=== PATIENT | male | born 1965 | race Caucasian/White ===

== ENCOUNTER 2022-08-15 10:17 | Emergency (ER) | payer MEDICARE, OTHER ==
[~2022-08-15] VITALS: Ht 160 cm; Wt 86.6 kg
[2022-08-15] MEDS ORDERED: IV NS 0.9% 1,000 ML BAG IV ONE (10:30)
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
[2022-08-15 11:07] LABS: BASOPHILS % (AUTO) 0.5 % (0.0-2.0); EOSINOPHILS % (AUTO) 2.6 % (0.0-6.0); HEMATOCRIT 31 % (39-51); LYMPHOCYTES % (AUTO) 16.6 % (20.0-44.0); MEAN CORPUSCULAR HGB CONC 33 g/dl (31.0-36.0); MEAN CORPUSCULAR VOLUME 94 fL (80-96); MONOCYTES # (AUTO) 0.7 K/uL (0.1-1.30); MONOCYTES % (AUTO) 12.3 % (2.0-12.0); NEUTROPHILS # (AUTO) 3.9 K/uL (1.8-8.9); PLATELET COUNT (AUTO) 226 K/uL (150-450); RED BLOOD CELL COUNT(AUTO) 3.29 MIL/uL (4.5-6.0); WHITE BLOOD COUNT (AUTO) 5.8 K/uL (4.3-11.0)
[2022-08-15 11:22] LABS: CALCIUM, SERUM 8.9 mg/dL (8.5-10.1); CARBON DIOXIDE 24 mmol/L (21-32); CHLORIDE 105 mmol/L (98-107); CREATININE 1.3 mg/dL (0.6-1.3); GLUCOSE 83 mg/dL (74-106); POTASSIUM 4.7 mmol/L (3.5-5.1); SODIUM SERUM 134 mmol/L (136-145); UREA NITROGEN, BLOOD 20 mg/dL (7-18)
[2022-08-15 11:28] LABS: ALANINE AMINOTRANSFERASE 20 U/L (12-78); ALBUMIN 3.5 g/dL (3.4-5.0); ALKALINE PHOSPHATASE 107 U/L (46-116); ASPARTATE AMINOTRANSFERASE 12 U/L (15-37); BILIRUBIN,DIRECT 0.1 mg/dL (0.0-0.2); BILIRUBIN,TOTAL 0.2 mg/dL (0.2-1.0); TOTAL PROTEIN, SERUM 6.8 g/dL (6.4-8.2)
--- NOTE | 2022-08-15 14:12 | NUR ---
[facility] CALLED FOR TRANSPORT ETA 45 MINS.
[2022-08-15 15:10] VITALS: BP 134/77
--- NOTE | 2022-08-15 15:25 | NUR ---
patient picked up by private ambulance in no distress going to [facility].
== END 2022-08-15 15:24 ==
LOC: ER 10:19
DX: R55 Syncope and collapse (principal); E86.0 Dehydration; I10 Essential (primary) hypertension; E78.5 Hyperlipidemia, unspecified; G89.29 Other chronic pain; F20.9 Schizophrenia, unspecified; F32.A Depression, unspecified
CPT/HCPCS: 99285; 96360; 71045; 93005; 85025; 80048; 80076; 36415; 84484; J7030

== ENCOUNTER 2023-09-22 07:43 | Inpatient (IN) | payer MEDICARE, OTHER ==
[~2023-09-22] VITALS: Ht 170.2 cm; Wt 73.9 kg
[2023-09-22 08:59] LABS: APPEARANCE,URINE CLEAR (CLEAR); BILIRUBIN,URINE NEGATIVE (NEGATIVE); BLOOD, URINE TRACE-INTA Ery/uL (NEGATIVE); COLOR,URINE YELLOW (YELLOW); KETONES,URINE 3+ mg/dL (NEGATIVE); LEUKOCYTE ESTERASE ,URINE NEGATIVE (NEGATIVE); NITRITE, URINE NEGATIVE (NEGATIVE); PH,URINE 5.5 (5.0-8.0); PROTEIN,URINE TRACE mg/dl (NEGATIVE); UGLUCOSE NEGATIVE (NEGATIVE); UROBILINOGEN,URINE 0.2 EU/dL (0.2)
[2023-09-22 09:13] LABS: ADD URINE CULTURE NO; BACTERIA,URINE Rare /HPF (None Seen); RBC,URINE 0-2 /HPF (0-2); SQUAMOUS EPITHELIAL CELL,UR Few /HPF (None Seen); WBC,URINE 0-3 /HPF (0-3)
[2023-09-22 09:14] LABS: HYALINE CASTS, URINE Rare /LPF (None Seen)
[2023-09-22 09:15] LABS: AMPHETAMINE, URINE NEGATIVE (NEGATIVE); BARBITURATE, URINE NEGATIVE (NEGATIVE); CANNABINOID, URINE NEGATIVE (NEGATIVE); COCCAINE, URINE NEGATIVE (NEGATIVE); OPIATE, URINE NEGATIVE (NEGATIVE); PHENCYCLIDINE SCREEN,URINE NEGATIVE (NEGATIVE)
[2023-09-22 10:17] LABS: BENZODIAZEPINE, URINE POSITIVE (NEGATIVE)
[2023-09-22 11:09] LABS: CALCIUM, SERUM 9.6 mg/dL (8.5-10.1); CARBON DIOXIDE 19 mmol/L (21-32); CHLORIDE 89 mmol/L (98-107); CREATININE 0.8 mg/dL (0.6-1.3); GLUCOSE 65 mg/dL (74-106); POTASSIUM 4.4 mmol/L (3.5-5.1); SODIUM SERUM 124 mmol/L (136-145); UREA NITROGEN, BLOOD 12 mg/dL (7-18)
[2023-09-22 11:17] LABS: ALANINE AMINOTRANSFERASE 30 U/L (12-78); ALBUMIN 4.4 g/dL (3.4-5.0); ALKALINE PHOSPHATASE 99 U/L (46-116); ASPARTATE AMINOTRANSFERASE 35 U/L (15-37); BASOPHILS % (AUTO) 0.1 % (0.0-2.0); BILIRUBIN,DIRECT 0.1 mg/dL (0.0-0.2); BILIRUBIN,TOTAL 0.4 mg/dL (0.2-1.0); HEMATOCRIT 38 % (39-51); HEMOGLOBIN 12.2 g/dL (13.5-17.5); LYMPHOCYTES # (AUTO) 0.4 K/uL (0.8-4.8); LYMPHOCYTES % (AUTO) 5.9 % (20.0-44.0); MEAN CORPUSCULAR HEMOGLOBIN 31 PG (26.0-33.0); MEAN CORPUSCULAR HGB CONC 33 g/dl (31.0-36.0); MEAN CORPUSCULAR VOLUME 96 fL (80-96); MONOCYTES # (AUTO) 0.7 K/uL (0.1-1.30); MONOCYTES % (AUTO) 8.7 % (2.0-12.0); NEUTROPHILS # (AUTO) 6.4 K/uL (1.8-8.9); NEUTROPHILS % (AUTO) 85.3 % (43.0-81.0); PLATELET COUNT (AUTO) 250 K/uL (150-450); TOTAL PROTEIN, SERUM 7.8 g/dL (6.4-8.2); WHITE BLOOD COUNT (AUTO) 7.5 K/uL (4.3-11.0)
[2023-09-22 11:21] LABS: SALICYLATE 1.7 mg/dL (2.8-20.0)
[2023-09-22 11:22] LABS: ACETAMINOPHEN < 10 ug/ml (10-30); ALCOHOL, BLOOD < 3 mg/dL (0-10)
[2023-09-22] MEDS ORDERED: TDAP [DIPH/PERTUSSIS/TET] 0.5 ML VIAL IM ONE ×2 (12:30→13:00)
[2023-09-22] MEDS ORDERED: IV NS 0.9% 1,000 ML BAG IV ONE (12:30)
[2023-09-22 16:00] VITALS: BP 140/88; TEMP 98.4; O2SAT 98
[2023-09-22] MEDS ORDERED: ACETAMINOPHEN 325 MG TABLET PO PRN (17:30)
[2023-09-22] MEDS ORDERED: Z GUARD REMEDY 4 OZ OINT TP PRN (17:30)
[2023-09-22] MEDS ORDERED: ONDANSETRON HCL/PF 4 MG/2 ML VIAL IVP PRN (17:30)
[2023-09-22] MEDS ORDERED: IV NS 0.9% 100 ML IV ONE (17:30)
[2023-09-22] MEDS ORDERED: MAG HYDROX/AL HYDROX/SIMETH 30 ML UDC PO PRN (17:30)
[2023-09-22 18:40] LABS: THYROID STIMULATING HORMONE 1.091 uIU/mL (0.358-3.74)
[2023-09-22 20:00] VITALS: BP 148/90; TEMP 99.7; O2SAT 98
[2023-09-22 20:56] VITALS: BP 148/90; TEMP 99.7; O2SAT 98
[2023-09-22] MEDS ORDERED: ENOXAPARIN SODIUM 40 MG/0.4 ML DISP.SYRIN SQ SCH (21:00)
[2023-09-22 23:35] VITALS: BP 174/98; TEMP 98.1; O2SAT 98
[2023-09-23] VITALS: BP 174/98; TEMP 98.1; O2SAT 98
[2023-09-23] MEDS ORDERED: CLONIDINE HCL 0.1 MG TABLET PO PRN (00:30)
[2023-09-23] MEDS: LORAZEPAM INJ 2 MG/ML VIAL IV PRN ×2 (03:42→16:02)
[2023-09-23] MEDS ORDERED: PANTOPRAZOLE 40 MG TABLET.DR PO SCH (07:30)
[2023-09-23 08:00] VITALS: BP 156/87; TEMP 98.8; O2SAT 94
[2023-09-23] MEDS ORDERED: ARIP5TAB10 PO ×2 (08:40→12:14)
[2023-09-23] MEDS ORDERED: METO25TA3 PO ×2 (08:40→12:14)
[2023-09-23] MEDS ORDERED: SODI1TAB66 PO ×2 (08:40→12:14)
[2023-09-23] MEDS ORDERED: OXCA300T15 PO ×2 (08:40→12:14)
[2023-09-23] MEDS ORDERED: LISI10TA29 PO ×2 (08:40→12:14)
[2023-09-23] MEDS ORDERED: TAMS-12 PO ×2 (08:40→12:14)
[2023-09-23] MEDS ORDERED: AMLO-213 PO ×2 (08:40→12:14)
[2023-09-23] MEDS ORDERED: LAMO100T17 PO ×2 (08:40→12:14)
[2023-09-23] MEDS ORDERED: PRIM50TA27 PO ×2 (08:40→12:14)
[2023-09-23] MEDS ORDERED: ATOR10TA PO ×2 (08:40→12:14)
[2023-09-23] MEDS ORDERED: MULT-24 PO (08:40)
[2023-09-23] MEDS ORDERED: ESCI10TA PO (08:40)
[2023-09-23] MEDS ORDERED: SERT50TA PO ×2 (08:40→12:14)
[2023-09-23] MEDS ORDERED: QUET300T2 PO ×2 (08:40→12:14)
[2023-09-23 09:35] LABS: HEMATOCRIT 35 % (39-51); HEMOGLOBIN 11.7 g/dL (13.5-17.5); LYMPHOCYTES # (AUTO) 0.4 K/uL (0.8-4.8); LYMPHOCYTES % (AUTO) 6.3 % (20.0-44.0); MEAN CORPUSCULAR HEMOGLOBIN 31 PG (26.0-33.0); MEAN CORPUSCULAR HGB CONC 33 g/dl (31.0-36.0); MEAN CORPUSCULAR VOLUME 92 fL (80-96); MONOCYTES # (AUTO) 0.5 K/uL (0.1-1.30); NEUTROPHILS # (AUTO) 5.8 K/uL (1.8-8.9); NEUTROPHILS % (AUTO) 85.7 % (43.0-81.0); PLATELET COUNT (AUTO) 281 K/uL (150-450); RED BLOOD CELL COUNT(AUTO) 3.82 MIL/uL (4.5-6.0); RED CELL DISTRIBUTION WIDTH 13.8 % (11.5-15.0); WHITE BLOOD COUNT (AUTO) 6.7 K/uL (4.3-11.0)
[2023-09-23 09:53] LABS: CALCIUM, SERUM 8.7 mg/dL (8.5-10.1); MAGNESIUM 2.4 mg/dL (1.8-2.4); PHOSPHORUS 3.4 mg/dL (2.5-4.9); POTASSIUM 3.7 mmol/L (3.5-5.1)
[2023-09-23] MEDS: SODIUM CHLORIDE 1000 MG TABLET PO SCH ×2 (10:23→17:32)
[2023-09-23 12:00] VITALS: BP 141/96; TEMP 100.6; O2SAT 96
[2023-09-23 13:26] LABS: LYMPHOCYTES % (MANUAL) 6 % (16-48); MONOCYTES % (MANUAL) 9 % (0-11.0); NEUTROPHILS % (MANUAL) 85 (42-76); PLATELET ESTIMATE ADEQUATE
[2023-09-23 16:00] VITALS: BP 115/94; TEMP 98.1; O2SAT 97
[2023-09-23] MEDS ORDERED: QUETIAPINE FUMARATE 100 MG TABLET PO SCH (17:00)
[2023-09-23] MEDS ORDERED: OXCARBAZEPINE 150 MG TABLET PO SCH (17:00)
[2023-09-23] MEDS ORDERED: TAMSULOSIN 0.4 MG CAP.SR.24H PO SCH (22:00)
[2023-09-23] MEDS ORDERED: PRIMIDONE 50 MG TABLET PO SCH (22:00)
[2023-09-23] MEDS ORDERED: ARIPIPRAZOLE 5 MG TABLET PO SCH (22:00)
[2023-09-24] MEDS ORDERED: SERTRALINE HCL 50 MG TABLET PO SCH (09:00)
[2023-09-24] MEDS ORDERED: METOPROLOL SUCCINATE 25 MG TAB.SR.24H PO SCH (09:00)
[2023-09-24] MEDS ORDERED: LISINOPRIL (10MG) 10 MG TABLET PO SCH (09:00)
[2023-09-24] MEDS ORDERED: ATORVASTATIN 10 MG TABLET PO SCH (09:00)
[2023-09-24] MEDS ORDERED: MULTIVITAMINS,THERAGRAN 1 UDTAB TABLET PO SCH (09:00)
[2023-09-24] MEDS ORDERED: AMLODIPINE BESYLATE 10 MG TABLET PO SCH (09:00)
[2023-09-24] MEDS ORDERED: LamoTRIgine 100 MG TABLET PO SCH (09:00)
== END 2023-09-23 20:20 | DRG 640 ==
LOC: ER 07:48 → TELE 15:56
PROVIDERS: ADMIT Nurse Practitioner Acute Care; ATTEND Nurse Practitioner Acute Care
DX: E87.1 Hypo-osmolality and hyponatremia (principal); G93.41 Metabolic encephalopathy; Z59.00 Homelessness unspecified; G40.909 Epilepsy, unspecified, not intractable, without status epilepticus; I10 Essential (primary) hypertension; E78.5 Hyperlipidemia, unspecified; F20.9 Schizophrenia, unspecified; G89.29 Other chronic pain; M19.90 Unspecified osteoarthritis, unspecified site; F17.200 Nicotine dependence, unspecified, uncomplicated; D64.9 Anemia, unspecified; E16.2 Hypoglycemia, unspecified; E87.20 Acidosis, unspecified; E87.8 Other disorders of electrolyte and fluid balance, not elsewhere classified; Z79.899 Other long term (current) drug therapy
CPT/HCPCS: 36415; 70450-TC; 71045-TC; 72125-TC; 73564-TC; 80048-TC; 80061-TC; 80076-TC; 81001; 83735-TC; 83935-TC; 84100-TC; 84300-TC; 84443-TC; 84484-TC; 85025-TC; 90715; 97110-TC; 97116-TC; 97530-TC; A4223; G0378; G0480; J1650; J2060; J7030

== ENCOUNTER 2023-09-23 20:46 | Inpatient (IN) | payer MEDICARE, OTHER ==
[~2023-09-23] VITALS: Ht 170.2 cm; Wt 73.9 kg
[2023-09-23 20:40] VITALS: BP 136/90; TEMP 98.2; O2SAT 100
[~2023-09-23 20:46] MED LIST: AMLO-213 PO; ARIP5TAB10 PO; ATOR10TA PO; ESCI10TA PO; LAMO100T17 PO; LISI10TA29 PO; METO25TA3 PO; MULT-24 PO; OXCA300T15 PO; PRIM50TA27 PO; QUET300T2 PO; SERT50TA PO; SODI1TAB66 PO; TAMS-12 PO
[2023-09-23] MEDS ORDERED: MAGNESIUM HYDROXIDE 30 ML UDC PO PRN (21:00)
[2023-09-23] MEDS ORDERED: MAG HYDROX/AL HYDROX/SIMETH 30 ML UDC PO PRN (21:00)
[2023-09-23] MEDS ORDERED: BLOOD SUGAR DIAGNOSTIC 1 EACH STRIP IN ONE (21:00)
[2023-09-23] MEDS ORDERED: LORAZEPAM 0.5 MG TABLET PO PRN (21:00)
[2023-09-24 08:00] VITALS: BP 160/89; TEMP 98.6; O2SAT 100
[2023-09-24] MEDS: LISINOPRIL (10MG) 10 MG TABLET PO SCH (08:28)
[2023-09-24] MEDS: SODIUM CHLORIDE 1000 MG TABLET PO SCH ×2 (08:29→16:13)
[2023-09-24] MEDS: METOPROLOL SUCCINATE 25 MG TAB.SR.24H PO SCH (08:29)
[2023-09-24] MEDS: AMLODIPINE BESYLATE 10 MG TABLET PO SCH (08:29)
[2023-09-24] MEDS: LamoTRIgine 100 MG TABLET PO SCH (09:26)
[2023-09-24] MEDS: risperiDONE 1 MG TABLET PO SCH ×2 (12:51→16:13)
[2023-09-24 15:33] LABS: CREATININE 1.1 mg/dL (0.6-1.3)
[2023-09-24 15:35] LABS: CALCIUM, SERUM 9.4 mg/dL (8.5-10.1); CREATININE 1.1 mg/dL (0.6-1.3); MAGNESIUM 2.5 mg/dL (1.8-2.4); PHOSPHORUS 2.7 mg/dL (2.5-4.9); POTASSIUM 3.5 mmol/L (3.5-5.1)
[2023-09-24 15:38] LABS: CHOLESTEROL 163 mg/dL (<200); HDL CHOLESTEROL 77 mg/dL (40-60); LDL 65 mg/dL (0-99); TRIGLYCERIDES 80 mg/dL (30-150)
[2023-09-24 15:47] LABS: THYROID STIMULATING HORMONE 1.34 uIU/mL (0.358-3.74); URIC ACID 8.2 mg/dL (2.6-7.2)
[2023-09-24 16:00] VITALS: BP 104/79; TEMP 98.1; O2SAT 98
[2023-09-24] MEDS: LORAZEPAM 0.5 MG TABLET PO PRN (16:13)
[2023-09-24 20:24] VITALS: BP 139/79; TEMP 97.9; O2SAT 100
[2023-09-24] MEDS: ATORVASTATIN 10 MG TABLET PO SCH (21:24)
[2023-09-24] MEDS: TRAZODONE 50 MG TABLET PO SCH (21:26)
[2023-09-24] MEDS: TAMSULOSIN 0.4 MG CAP.SR.24H PO SCH (21:27)
[2023-09-25] MEDS: ZOLPIDEM TARTRATE 5 MG TABLET PO PRN ×2 (00:42→22:11)
[2023-09-25 08:00] VITALS: BP 144/99; TEMP 97.7; O2SAT 99
[2023-09-25] MEDS: LORAZEPAM 0.5 MG TABLET PO PRN ×2 (08:55→20:05)
[2023-09-25] MEDS: SODIUM CHLORIDE 1000 MG TABLET PO SCH ×2 (08:56→16:04)
[2023-09-25] MEDS: ESCITALOPRAM OXALATE (10 MG) 10 MG TABLET PO SCH (08:56)
[2023-09-25] MEDS: LISINOPRIL (10MG) 10 MG TABLET PO SCH (08:56)
[2023-09-25] MEDS: METOPROLOL SUCCINATE 25 MG TAB.SR.24H PO SCH (09:07)
[2023-09-25] MEDS: AMLODIPINE BESYLATE 10 MG TABLET PO SCH (09:08)
[2023-09-25] MEDS: LamoTRIgine 100 MG TABLET PO SCH (09:12)
[2023-09-25] MEDS: risperiDONE 1 MG TABLET PO SCH ×2 (09:22→16:04)
[2023-09-25] MEDS ORDERED: diphenhydrAMINE HCL 25 MG CAPSULE PO ONE (09:30)
[2023-09-25 16:00] VITALS: BP 136/95; TEMP 98.1; O2SAT 98
[2023-09-25 20:37] VITALS: BP 153/89; TEMP 97.9; O2SAT 99
[2023-09-25] MEDS: MUPIROCIN OINT 2% 22 GM TUBE NS SCH (21:00)
[2023-09-25] MEDS: ATORVASTATIN 10 MG TABLET PO SCH (21:00)
[2023-09-25] MEDS: TRAZODONE 50 MG TABLET PO SCH (21:03)
[2023-09-25] MEDS: TAMSULOSIN 0.4 MG CAP.SR.24H PO SCH (21:03)
[2023-09-25] MEDS: ACETAMINOPHEN 325 MG TABLET PO PRN (22:28)
[2023-09-26] MEDS: LORAZEPAM 0.5 MG TABLET PO PRN (06:46)
[2023-09-26 08:00] VITALS: BP 123/75; TEMP 99; O2SAT 98
[2023-09-26] MEDS: risperiDONE 1 MG TABLET PO SCH ×2 (08:47→16:09)
[2023-09-26] MEDS: ESCITALOPRAM OXALATE (10 MG) 10 MG TABLET PO SCH (08:47)
[2023-09-26] MEDS: METOPROLOL SUCCINATE 25 MG TAB.SR.24H PO SCH (08:47)
[2023-09-26] MEDS: LISINOPRIL (10MG) 10 MG TABLET PO SCH (08:47)
[2023-09-26] MEDS: LamoTRIgine 100 MG TABLET PO SCH (08:47)
[2023-09-26] MEDS: SODIUM CHLORIDE 1000 MG TABLET PO SCH ×2 (08:47→16:09)
[2023-09-26] MEDS: AMLODIPINE BESYLATE 10 MG TABLET PO SCH (08:49)
[2023-09-26] MEDS: MUPIROCIN OINT 2% 22 GM TUBE NS SCH ×2 (08:50→21:00)
[2023-09-26] MEDS ORDERED: LORAZEPAM 1 MG TABLET PO ONE (12:30)
[2023-09-26 16:00] VITALS: BP 132/84; TEMP 98.2; O2SAT 100
[2023-09-26 20:01] VITALS: BP 111/72; TEMP 98.2; O2SAT 100
[2023-09-26] MEDS: TRAZODONE 50 MG TABLET PO SCH (21:41)
[2023-09-26] MEDS: ATORVASTATIN 10 MG TABLET PO SCH (21:41)
[2023-09-26] MEDS: TAMSULOSIN 0.4 MG CAP.SR.24H PO SCH (21:41)
[2023-09-27] MEDS: LORAZEPAM 0.5 MG TABLET PO PRN (04:46)
[2023-09-27 08:00] VITALS: BP 144/79; TEMP 98.8; O2SAT 99
[2023-09-27] MEDS: ESCITALOPRAM OXALATE (10 MG) 10 MG TABLET PO SCH (08:12)
[2023-09-27] MEDS: LISINOPRIL (10MG) 10 MG TABLET PO SCH (08:12)
[2023-09-27] MEDS: LamoTRIgine 100 MG TABLET PO SCH (08:12)
[2023-09-27] MEDS: AMLODIPINE BESYLATE 10 MG TABLET PO SCH (08:13)
[2023-09-27] MEDS: risperiDONE 1 MG TABLET PO SCH ×2 (08:13→16:11)
[2023-09-27] MEDS: METOPROLOL SUCCINATE 25 MG TAB.SR.24H PO SCH (08:13)
[2023-09-27] MEDS: SODIUM CHLORIDE 1000 MG TABLET PO SCH ×2 (08:13→16:11)
[2023-09-27] MEDS: MUPIROCIN OINT 2% 22 GM TUBE NS SCH ×2 (10:20→21:39)
[2023-09-27] MEDS: clonazePAM 0.5 MG TABLET PO SCH ×3 (12:12→21:40)
[2023-09-27 16:00] VITALS: BP 114/78; TEMP 98.8; O2SAT 98
[2023-09-27 20:00] VITALS: BP 146/81; TEMP 98.1; O2SAT 99
[2023-09-27] MEDS: TRAZODONE 50 MG TABLET PO SCH (21:40)
[2023-09-27] MEDS: ATORVASTATIN 10 MG TABLET PO SCH (21:40)
[2023-09-27] MEDS: TAMSULOSIN 0.4 MG CAP.SR.24H PO SCH (21:40)
[2023-09-28] MEDS: hydrOXYzine PAMOATE 25 MG CAPSULE PO PRN ×2 (04:20→14:39)
[2023-09-28 08:00] VITALS: BP 136/86; TEMP 98; O2SAT 100
[2023-09-28] MEDS: LISINOPRIL (10MG) 10 MG TABLET PO SCH (08:25)
[2023-09-28] MEDS: clonazePAM 0.5 MG TABLET PO SCH ×4 (08:25→21:17)
[2023-09-28] MEDS: MUPIROCIN OINT 2% 22 GM TUBE NS SCH ×2 (08:25→21:20)
[2023-09-28] MEDS: SODIUM CHLORIDE 1000 MG TABLET PO SCH ×2 (08:26→16:17)
[2023-09-28] MEDS: METOPROLOL SUCCINATE 25 MG TAB.SR.24H PO SCH (08:26)
[2023-09-28] MEDS: risperiDONE 1 MG TABLET PO SCH ×2 (08:26→16:17)
[2023-09-28] MEDS: LamoTRIgine 100 MG TABLET PO SCH (08:26)
[2023-09-28] MEDS: AMLODIPINE BESYLATE 10 MG TABLET PO SCH (08:26)
[2023-09-28] MEDS: ESCITALOPRAM OXALATE (10 MG) 10 MG TABLET PO SCH (08:26)
[2023-09-28 16:00] VITALS: BP 106/74; TEMP 98; O2SAT 99
[2023-09-28 20:00] VITALS: BP 116/77; TEMP 98.1; O2SAT 100
[2023-09-28] MEDS: ATORVASTATIN 10 MG TABLET PO SCH (21:17)
[2023-09-28] MEDS: TAMSULOSIN 0.4 MG CAP.SR.24H PO SCH (21:18)
[2023-09-28] MEDS: TRAZODONE 50 MG TABLET PO SCH (21:18)
[2023-09-29 08:00] VITALS: BP 149/79; TEMP 97.6; O2SAT 98
[2023-09-29] MEDS: LamoTRIgine 100 MG TABLET PO SCH (08:01)
[2023-09-29] MEDS: clonazePAM 0.5 MG TABLET PO SCH ×4 (08:01→20:25)
[2023-09-29] MEDS: ESCITALOPRAM OXALATE (10 MG) 10 MG TABLET PO SCH (08:01)
[2023-09-29] MEDS: LISINOPRIL (10MG) 10 MG TABLET PO SCH (08:01)
[2023-09-29] MEDS: AMLODIPINE BESYLATE 10 MG TABLET PO SCH (08:01)
[2023-09-29] MEDS: METOPROLOL SUCCINATE 25 MG TAB.SR.24H PO SCH (08:02)
[2023-09-29] MEDS: risperiDONE 1 MG TABLET PO SCH ×2 (08:02→16:06)
[2023-09-29] MEDS: SODIUM CHLORIDE 1000 MG TABLET PO SCH ×2 (08:02→16:05)
[2023-09-29] MEDS: MUPIROCIN OINT 2% 22 GM TUBE NS SCH ×2 (08:03→20:25)
[2023-09-29] MEDS: hydrOXYzine PAMOATE 25 MG CAPSULE PO PRN (11:10)
[2023-09-29] MEDS: ACETAMINOPHEN 325 MG TABLET PO PRN (14:31)
[2023-09-29 16:00] VITALS: BP 124/87; TEMP 98.6; O2SAT 99
[2023-09-29 20:35] VITALS: BP 125/73; TEMP 98; O2SAT 98
[2023-09-29] MEDS: TRAZODONE 50 MG TABLET PO SCH (21:01)
[2023-09-29] MEDS: ATORVASTATIN 10 MG TABLET PO SCH (21:01)
[2023-09-29] MEDS: TAMSULOSIN 0.4 MG CAP.SR.24H PO SCH (21:02)
[2023-09-30] MEDS: ACETAMINOPHEN 325 MG TABLET PO PRN ×2 (05:48→13:56)
[2023-09-30] MEDS: hydrOXYzine PAMOATE 25 MG CAPSULE PO PRN (05:48)
[2023-09-30 08:00] VITALS: BP 150/93; TEMP 97.9; O2SAT 100
[2023-09-30] MEDS: METOPROLOL SUCCINATE 25 MG TAB.SR.24H PO SCH (08:03)
[2023-09-30] MEDS: LISINOPRIL (10MG) 10 MG TABLET PO SCH (08:03)
[2023-09-30] MEDS: SODIUM CHLORIDE 1000 MG TABLET PO SCH ×2 (08:03→16:27)
[2023-09-30] MEDS: AMLODIPINE BESYLATE 10 MG TABLET PO SCH (08:04)
[2023-09-30] MEDS: ESCITALOPRAM OXALATE (10 MG) 10 MG TABLET PO SCH (08:04)
[2023-09-30] MEDS: LamoTRIgine 100 MG TABLET PO SCH (08:04)
[2023-09-30] MEDS: risperiDONE 1 MG TABLET PO SCH ×2 (08:04→16:27)
[2023-09-30] MEDS: clonazePAM 0.5 MG TABLET PO SCH ×4 (08:04→20:37)
[2023-09-30] MEDS: MUPIROCIN OINT 2% 22 GM TUBE NS SCH ×2 (09:00→20:39)
[2023-09-30 16:00] VITALS: BP 122/72; TEMP 98.1; O2SAT 100
[2023-09-30 20:02] VITALS: BP 106/60; TEMP 98.4; O2SAT 98
[2023-09-30] MEDS: ATORVASTATIN 10 MG TABLET PO SCH (21:02)
[2023-09-30] MEDS: TRAZODONE 50 MG TABLET PO SCH (21:02)
[2023-09-30] MEDS: TAMSULOSIN 0.4 MG CAP.SR.24H PO SCH (21:02)
[2023-10-01 08:00] VITALS: BP 133/71; TEMP 97.8; O2SAT 100
[2023-10-01] MEDS: risperiDONE 1 MG TABLET PO SCH ×3 (08:36→17:03)
[2023-10-01] MEDS: clonazePAM 0.5 MG TABLET PO SCH ×4 (08:36→21:07)
[2023-10-01] MEDS: METOPROLOL SUCCINATE 25 MG TAB.SR.24H PO SCH (08:36)
[2023-10-01] MEDS: LamoTRIgine 100 MG TABLET PO SCH (08:36)
[2023-10-01] MEDS: ESCITALOPRAM OXALATE (10 MG) 10 MG TABLET PO SCH (08:37)
[2023-10-01] MEDS: AMLODIPINE BESYLATE 10 MG TABLET PO SCH (08:37)
[2023-10-01] MEDS: LISINOPRIL (10MG) 10 MG TABLET PO SCH (08:37)
[2023-10-01] MEDS: SODIUM CHLORIDE 1000 MG TABLET PO SCH ×2 (08:38→17:03)
[2023-10-01 16:00] VITALS: BP 143/72; TEMP 98; O2SAT 95
[2023-10-01 20:16] VITALS: BP 112/66; TEMP 97.9; O2SAT 97
[2023-10-01] MEDS: ATORVASTATIN 10 MG TABLET PO SCH (21:07)
[2023-10-01] MEDS: TAMSULOSIN 0.4 MG CAP.SR.24H PO SCH (21:08)
[2023-10-01] MEDS: TRAZODONE 50 MG TABLET PO SCH (21:08)
[2023-10-02 08:00] VITALS: BP 122/89; TEMP 97.9; O2SAT 98
[2023-10-02] MEDS: METOPROLOL SUCCINATE 25 MG TAB.SR.24H PO SCH (10:57)
[2023-10-02] MEDS: SODIUM CHLORIDE 1000 MG TABLET PO SCH ×2 (10:57→18:05)
[2023-10-02] MEDS: clonazePAM 0.5 MG TABLET PO SCH ×4 (10:57→21:45)
[2023-10-02] MEDS: risperiDONE 1 MG TABLET PO SCH ×3 (10:57→18:05)
[2023-10-02] MEDS: AMLODIPINE BESYLATE 10 MG TABLET PO SCH (10:58)
[2023-10-02] MEDS: LISINOPRIL (10MG) 10 MG TABLET PO SCH (10:58)
[2023-10-02] MEDS: ESCITALOPRAM OXALATE (10 MG) 10 MG TABLET PO SCH (10:59)
[2023-10-02] MEDS: LamoTRIgine 100 MG TABLET PO SCH (11:00)
[2023-10-02 16:00] VITALS: BP 105/79; TEMP 98.7; O2SAT 96
[2023-10-02 20:54] VITALS: BP 124/74; TEMP 97.9; O2SAT 99
[2023-10-02] MEDS: TRAZODONE 50 MG TABLET PO SCH (21:46)
[2023-10-02] MEDS: TAMSULOSIN 0.4 MG CAP.SR.24H PO SCH (21:47)
[2023-10-02] MEDS ORDERED: ATORVASTATIN 10 MG TABLET ONE (22:25)
[2023-10-02] MEDS: ATORVASTATIN 10 MG TABLET PO SCH (22:45)
[2023-10-03 08:00] VITALS: BP 125/77; TEMP 98.2; O2SAT 100
[2023-10-03] MEDS: LamoTRIgine 100 MG TABLET PO SCH (08:21)
[2023-10-03] MEDS: SODIUM CHLORIDE 1000 MG TABLET PO SCH ×2 (08:21→16:06)
[2023-10-03] MEDS: clonazePAM 0.5 MG TABLET PO SCH ×4 (08:21→20:14)
[2023-10-03] MEDS: ESCITALOPRAM OXALATE (10 MG) 10 MG TABLET PO SCH (08:21)
[2023-10-03] MEDS: risperiDONE 1 MG TABLET PO SCH ×3 (08:21→16:06)
[2023-10-03] MEDS: METOPROLOL SUCCINATE 25 MG TAB.SR.24H PO SCH (08:22)
[2023-10-03] MEDS: AMLODIPINE BESYLATE 10 MG TABLET PO SCH (08:22)
[2023-10-03] MEDS: LISINOPRIL (10MG) 10 MG TABLET PO SCH (08:22)
[2023-10-03 16:00] VITALS: BP_SYST 110; BP_SYST 125; BP_DIAS 69; BP_DIAS 77; TEMP 98.1; TEMP 98.2; O2SAT 100; O2SAT 96
[2023-10-03] MEDS: ACETAMINOPHEN 325 MG TABLET PO PRN (16:59)
[2023-10-03 19:24] VITALS: BP 106/65; TEMP 97.7; O2SAT 99
[2023-10-03] MEDS: ATORVASTATIN 10 MG TABLET PO SCH (21:20)
[2023-10-03] MEDS: TRAZODONE 50 MG TABLET PO SCH (21:20)
[2023-10-03] MEDS: TAMSULOSIN 0.4 MG CAP.SR.24H PO SCH (21:20)
[2023-10-04] MEDS: hydrOXYzine PAMOATE 25 MG CAPSULE PO PRN (00:27)
[2023-10-04 05:30] VITALS: BP 122/72; TEMP 98.1; O2SAT 99
[2023-10-04 08:00] VITALS: BP 121/77; TEMP 97.8; O2SAT 99
[2023-10-04] MEDS: AMLODIPINE BESYLATE 10 MG TABLET PO SCH (08:02)
[2023-10-04] MEDS: SODIUM CHLORIDE 1000 MG TABLET PO SCH (08:02)
[2023-10-04] MEDS: LISINOPRIL (10MG) 10 MG TABLET PO SCH (08:03)
[2023-10-04] MEDS: LamoTRIgine 100 MG TABLET PO SCH (08:03)
[2023-10-04] MEDS: clonazePAM 0.5 MG TABLET PO SCH ×2 (08:03→12:17)
[2023-10-04] MEDS: risperiDONE 1 MG TABLET PO SCH ×2 (08:03→12:16)
[2023-10-04] MEDS: ESCITALOPRAM OXALATE (10 MG) 10 MG TABLET PO SCH (08:03)
[2023-10-04 08:05] VITALS: BP 121/77
[2023-10-04] MEDS: METOPROLOL SUCCINATE 25 MG TAB.SR.24H PO SCH (08:05)
== END 2023-10-04 13:28 | DRG 885 ==
LOC: GPS 20:46
PROVIDERS: ADMIT Psychiatry & Neurology Psychiatry; ATTEND Internal Medicine
DX: F20.0 Paranoid schizophrenia (principal); F03.918 Unspecified dementia, unspecified severity, with other behavioral disturbance; Z59.00 Homelessness unspecified; E22.2 Syndrome of inappropriate secretion of antidiuretic hormone; F03.911 Unspecified dementia, unspecified severity, with agitation; F03.94 Unspecified dementia, unspecified severity, with anxiety; F29 Unspecified psychosis not due to a substance or known physiological condition; G40.909 Epilepsy, unspecified, not intractable, without status epilepticus; I10 Essential (primary) hypertension; Z79.899 Other long term (current) drug therapy; Z91.81 History of falling; Z73.6 Limitation of activities due to disability; R27.8 Other lack of coordination; R53.1 Weakness; F41.9 Anxiety disorder, unspecified; T43.95XA Adverse effect of unspecified psychotropic drug, initial encounter; Y92.9 Unspecified place or not applicable
CPT/HCPCS: 36415; 80048-TC; 80061-TC; 82533; 82565-TC; 82962-TC; 83735-TC; 84100-TC; 84443-TC; 84550-TC; 87081-TC; Q0163; Q0177

== ENCOUNTER 2024-03-11 11:34 | Inpatient (IN) | payer MEDICARE, OTHER ==
[~2024-03-11] VITALS: Ht 175.3 cm; Wt 67.6 kg
[~2024-03-11 11:34] MED LIST changes: -ESCI10TA PO; -MULT-24 PO
[2024-03-11] MEDS: LORAZEPAM INJ 2 MG/ML VIAL IV ONE ×2 (12:00→18:33)
[2024-03-11] MEDS: IV NS 0.9% 1,000 ML BAG IV ONE (12:00)
[2024-03-11] MEDS ORDERED: LORAZEPAM INJ 2 MG/ML VIAL ONE ×2 (12:11→16:41)
[2024-03-11 12:21] LABS: BASOPHILS % (AUTO) 0.1 % (0.0-2.0); HEMATOCRIT 37 % (39-51); HEMOGLOBIN 11.9 g/dL (13.5-17.5); LYMPHOCYTES # (AUTO) 0.6 K/uL (0.8-4.8); LYMPHOCYTES % (AUTO) 8.4 % (20.0-44.0); MEAN CORPUSCULAR HEMOGLOBIN 31 PG (26.0-33.0); MEAN CORPUSCULAR HGB CONC 32 g/dl (31.0-36.0); MEAN CORPUSCULAR VOLUME 95 fL (80-96); MONOCYTES # (AUTO) 0.7 K/uL (0.1-1.30); MONOCYTES % (AUTO) 9.8 % (2.0-12.0); NEUTROPHILS # (AUTO) 5.7 K/uL (1.8-8.9); NEUTROPHILS % (AUTO) 81.7 % (43.0-81.0); PLATELET COUNT (AUTO) 358 K/uL (150-450); RED BLOOD CELL COUNT(AUTO) 3.87 MIL/uL (4.5-6.0); RED CELL DISTRIBUTION WIDTH 16.1 % (11.5-15.0); WHITE BLOOD COUNT (AUTO) 6.9 K/uL (4.3-11.0)
[2024-03-11 12:24] LABS: CALCIUM, SERUM 9.6 mg/dL (8.5-10.1); CARBON DIOXIDE 23 mmol/L (21-32); CHLORIDE 102 mmol/L (98-107); CREATININE 1.3 mg/dL (0.6-1.3); GLUCOSE 119 mg/dL (74-106); POTASSIUM 5.3 mmol/L (3.5-5.1); SERUM AMMONIA 52 umol/L (11-32); SODIUM SERUM 141 mmol/L (136-145); UREA NITROGEN, BLOOD 15 mg/dL (7-18)
[2024-03-11 12:30] LABS: ALANINE AMINOTRANSFERASE 24 U/L (12-78); ALKALINE PHOSPHATASE 104 U/L (46-116); ASPARTATE AMINOTRANSFERASE 20 U/L (15-37); BILIRUBIN,DIRECT 0.3 mg/dL (0.0-0.2); BILIRUBIN,TOTAL 0.7 mg/dL (0.2-1.0); TOTAL PROTEIN, SERUM 8.2 g/dL (6.4-8.2)
[2024-03-11 12:31] LABS: ACETAMINOPHEN <10 ug/ml (10-30); ALCOHOL, BLOOD < 3 mg/dL (0-10)
[2024-03-11 12:37] LABS: THYROID STIMULATING HORMONE 0.894 uIU/mL (0.358-3.74)
[2024-03-11 13:11] LABS: APPEARANCE,URINE CLEAR (CLEAR); BILIRUBIN,URINE NEGATIVE (NEGATIVE); BLOOD, URINE 2+ Ery/uL (NEGATIVE); COLOR,URINE YELLOW (YELLOW); KETONES,URINE 1+ mg/dL (NEGATIVE); LEUKOCYTE ESTERASE ,URINE NEGATIVE (NEGATIVE); NITRITE, URINE NEGATIVE (NEGATIVE); PROTEIN,URINE TRACE mg/dl (NEGATIVE); UGLUCOSE NEGATIVE (NEGATIVE)
[2024-03-11 13:22] LABS: AMPHETAMINE, URINE NEGATIVE (NEGATIVE); BARBITURATE, URINE NEGATIVE (NEGATIVE); BENZODIAZEPINE, URINE NEGATIVE (NEGATIVE); CANNABINOID, URINE NEGATIVE (NEGATIVE); COCCAINE, URINE NEGATIVE (NEGATIVE); OPIATE, URINE NEGATIVE (NEGATIVE); PHENCYCLIDINE SCREEN,URINE NEGATIVE (NEGATIVE)
[2024-03-11 13:56] LABS: ADD URINE CULTURE NO; BACTERIA,URINE Few /HPF (None Seen); MUCUS,URINE Few /LPF (None Seen); SQUAMOUS EPITHELIAL CELL,UR Few /HPF (None Seen)
[2024-03-11] MEDS ORDERED: ONDANSETRON HCL/PF 4 MG/2 ML VIAL IVP PRN (14:00)
[2024-03-11] MEDS ORDERED: ACETAMINOPHEN 325 MG TABLET PO PRN (14:00)
[2024-03-11] MEDS ORDERED: ASPIRIN 81 MG TAB.CHEW ONE (15:51)
[2024-03-11] MEDS: ASPIRIN 81 MG TAB.CHEW PO ONE (15:55)
[2024-03-11] MEDS ORDERED: CEFTRIAXONE 1GM BAG (ER ONLY) 50 ML IV ONE (16:32)
[2024-03-11] MEDS: IV NS 0.9% 1,000 ML IV SCH (16:39)
[2024-03-11] MEDS: CEFTRIAXONE 1 G in IV D5W 50 ML IV SCH (16:39)
[2024-03-11] MEDS ORDERED: ACETAMINOPHEN 325 MG TABLET ONE (16:58)
[2024-03-11] MEDS: LACTULOSE 10 G/15 ML UDC (PYXIS) PO SCH (18:33)
[2024-03-11 20:00] VITALS: BP 104/71; TEMP 98.2; O2SAT 99
[2024-03-11] MEDS: HEPARIN SODIUM, PORCINE 5000 UNITS/1 ML VIAL SQ SCH (22:36)
[2024-03-11] MEDS: MORPHINE SULFATE INJ 2 MG/ML DISP.SYRIN IV PRN (22:43)
[2024-03-12] VITALS: BP 138/84; TEMP 92.8; O2SAT 99
[2024-03-12 04:00] VITALS: BP 108/73; TEMP 98.8; O2SAT 98
[2024-03-12 06:39] LABS: BASOPHILS % (AUTO) 0.2 % (0.0-2.0); EOSINOPHILS % (AUTO) 0.1 % (0.0-6.0); HEMATOCRIT 28 % (39-51); HEMOGLOBIN 9.3 g/dL (13.5-17.5); LYMPHOCYTES % (AUTO) 21.9 % (20.0-44.0); MEAN CORPUSCULAR HEMOGLOBIN 31 PG (26.0-33.0); MEAN CORPUSCULAR HGB CONC 33 g/dl (31.0-36.0); MEAN CORPUSCULAR VOLUME 94 fL (80-96); MONOCYTES # (AUTO) 0.8 K/uL (0.1-1.30); MONOCYTES % (AUTO) 18.5 % (2.0-12.0); NEUTROPHILS # (AUTO) 2.7 K/uL (1.8-8.9); NEUTROPHILS % (AUTO) 59.3 % (43.0-81.0); PLATELET COUNT (AUTO) 282 K/uL (150-450); RED CELL DISTRIBUTION WIDTH 15.9 % (11.5-15.0); WHITE BLOOD COUNT (AUTO) 4.6 K/uL (4.3-11.0)
[2024-03-12 07:00] LABS: ALBUMIN 2.8 g/dL (3.4-5.0); BILIRUBIN,TOTAL 0.4 mg/dL (0.2-1.0); CALCIUM, SERUM 8.4 mg/dL (8.5-10.1); CREATININE 0.9 mg/dL (0.6-1.3); MAGNESIUM 2.6 mg/dL (1.8-2.4); PHOSPHORUS 4.4 mg/dL (2.5-4.9); POTASSIUM 3.9 mmol/L (3.5-5.1); TOTAL PROTEIN, SERUM 6.2 g/dL (6.4-8.2)
[2024-03-12 08:00] VITALS: BP 104/69; TEMP 98.8; O2SAT 97
[2024-03-12] MEDS: LISINOPRIL (20MG) 20 MG TABLET PO SCH (09:00)
[2024-03-12 09:59] LABS: ANISOCYTOSIS 1+; EOSINOPHILS % (MANUAL) 1 % (0-4); LYMPHOCYTES % (MANUAL) 25 % (16-48); MONOCYTES % (MANUAL) 16 % (0-11.0); NEUTROPHILS % (MANUAL) 58 (42-76); PLATELET ESTIMATE ADEQUATE
[2024-03-12 10:55] LABS: IRON, SERUM 30 ug/dl (50-175); TOTAL IRON BINDING CAPACITY 253 ug/dl (250-450)
[2024-03-12 11:32] LABS: HEMOGLOBIN 9.5 g/dL (13.5-17.5)
[2024-03-12 11:38] LABS: CHOLESTEROL 138 mg/dL (<200); FERRITIN 158 ng/mL (8-388); HDL CHOLESTEROL 64 mg/dL (40-60); LDL 54 mg/dL (0-99); TRIGLYCERIDES 34 mg/dL (30-150)
[2024-03-12 12:00] VITALS: BP 104/68; TEMP 99.3; O2SAT 98
[2024-03-12 16:00] VITALS: BP 110/65; TEMP 99.9; O2SAT 98
[2024-03-12 20:00] VITALS: BP 120/77; TEMP 98.6; O2SAT 98
[2024-03-12 20:05] LABS: HEMOGLOBIN 9.7 g/dL (13.5-17.5)
[2024-03-13] VITALS: BP 118/76; TEMP 98.6; O2SAT 98
[2024-03-13 03:29] LABS: HEMOGLOBIN 9.8 g/dL (13.5-17.5)
[2024-03-13 04:00] VITALS: BP 130/80; TEMP 98.4; O2SAT 100
[2024-03-13 07:56] LABS: BASOPHILS % (AUTO) 0.3 % (0.0-2.0); EOSINOPHILS % (AUTO) 0.1 % (0.0-6.0); HEMATOCRIT 34 % (39-51); HEMOGLOBIN 10.6 g/dL (13.5-17.5); LYMPHOCYTES % (AUTO) 22.2 % (20.0-44.0); MEAN CORPUSCULAR HEMOGLOBIN 31 PG (26.0-33.0); MEAN CORPUSCULAR HGB CONC 31 g/dl (31.0-36.0); MEAN CORPUSCULAR VOLUME 101 fL (80-96); MONOCYTES # (AUTO) 0.7 K/uL (0.1-1.30); MONOCYTES % (AUTO) 16.2 % (2.0-12.0); NEUTROPHILS # (AUTO) 2.7 K/uL (1.8-8.9); NEUTROPHILS % (AUTO) 61.2 % (43.0-81.0); PLATELET COUNT (AUTO) 257 K/uL (150-450); RED BLOOD CELL COUNT(AUTO) 3.38 MIL/uL (4.5-6.0); WHITE BLOOD COUNT (AUTO) 4.4 K/uL (4.3-11.0)
[2024-03-13 08:00] VITALS: BP 144/86; TEMP 98.3; O2SAT 100
[2024-03-13 08:20] LABS: CALCIUM, SERUM 7.9 mg/dL (8.5-10.1); CREATININE 0.8 mg/dL (0.6-1.3); MAGNESIUM 2.6 mg/dL (1.8-2.4); PHOSPHORUS 3.3 mg/dL (2.5-4.9); POTASSIUM 5.2 mmol/L (3.5-5.1)
[2024-03-13] MEDS: FERROUS SULFATE (325 MG) 325 MG/TAB TABLET PO SCH (08:57)
[2024-03-13 11:00] LABS: HEMOGLOBIN 10.3 g/dL (13.5-17.5)
[2024-03-13] MEDS: NEOMY SULF/BACITRAC ZN/POLY 15 GM TUBE TP SCH (11:20)
[2024-03-13] MEDS ORDERED: LISI20TA30 PO (11:25)
[2024-03-13] MEDS ORDERED: CIPR500T5 PO (11:25)
[2024-03-13] MEDS ORDERED: FERR325T28 PO (11:25)
[2024-03-13 12:00] VITALS: BP 106/69; TEMP 98.3; O2SAT 100
[2024-03-13 13:08] LABS: LYMPHOCYTES % (MANUAL) 27 % (16-48); MONOCYTES % (MANUAL) 24 % (0-11.0); NEUTROPHILS % (MANUAL) 49 (42-76); PLATELET ESTIMATE ADEQUATE
[2024-03-13] MEDS: OLANZAPINE 10 MG VIAL IM PRN (15:51)
[2024-03-13 19:07] LABS: HEMOGLOBIN 10.3 g/dL (13.5-17.5)
[2024-03-13 20:47] VITALS: BP 118/79; TEMP 98.1; O2SAT 100
[2024-03-14] VITALS (12 sets, daily range): BP systolic 125–160; BP diastolic 76–112; TEMP 98–99.8; O2SAT 97–100
[2024-03-14 03:07] LABS: HEMOGLOBIN 10.6 g/dL (13.5-17.5)
[2024-03-14] MEDS: SODIUM POLYSTYRENE SULFONATE 15 G/60 ML BOTTLE PO ONE (12:03)
[2024-03-14] MEDS: hydrALAZINE HCL IV 20 MG VIAL IV PRN (14:58)
[2024-03-14] MEDS: ADENOSINE 6 MG/2 ML VIAL IVP ONE (17:57)
[2024-03-14 19:12] LABS: HEMOGLOBIN 11.2 g/dL (13.5-17.5)
[2024-03-14] MEDS: IV NS 0.9% 1,000 ML IV PRN (19:26)
[2024-03-15] VITALS (14 sets, daily range): BP systolic 110–165; BP diastolic 70–93; TEMP 98.4–99.1; O2SAT 97–100
[2024-03-15] MEDS: HALOPERIDOL LACTATE INJ 5 MG/ML VIAL IM PRN (03:20)
[2024-03-15] MEDS: diphenhydrAMINE HCL 50 MG/ML VIAL IM PRN (14:49)
[2024-03-15] MEDS: LORAZEPAM INJ 2 MG/ML VIAL IM PRN (14:49)
[2024-03-15 19:41] LABS: HEMOGLOBIN 10.5 g/dL (13.5-17.5)
[2024-03-16] VITALS: BP 124/63; TEMP 98.8; O2SAT 98
[2024-03-16 04:00] VITALS: BP 129/73; TEMP 98.4; O2SAT 95
[2024-03-16 09:00] VITALS: BP 147/80; TEMP 98.3; O2SAT 98
[2024-03-16] MEDS: HALOPERIDOL 5 MG TABLET PO SCH (12:30)
[2024-03-16] MEDS ORDERED: LORAZEPAM 0.5 MG TABLET PO PRN (12:30)
[2024-03-16 16:00] VITALS: BP 133/100; TEMP 99.8; O2SAT 98
[2024-03-16 20:00] VITALS: BP 133/73; TEMP 98.8; O2SAT 98
== END 2024-03-16 23:15 | DRG 689 ==
LOC: ER 11:37 → TELE1 16:44 → MEDSG1 03-13 08:35 → ICU 03-14 15:27 → TELE 03-15 11:44 → MED 03-16 11:20
PROVIDERS: ADMIT Internal Medicine; ATTEND Internal Medicine
DX: N39.0 Urinary tract infection, site not specified (principal); G93.41 Metabolic encephalopathy; I21.A1 Myocardial infarction type 2; Z59.00 Homelessness unspecified; F03.92 Unspecified dementia, unspecified severity, with psychotic disturbance; F03.93 Unspecified dementia, unspecified severity, with mood disturbance; E72.20 Disorder of urea cycle metabolism, unspecified; E87.1 Hypo-osmolality and hyponatremia; F03.94 Unspecified dementia, unspecified severity, with anxiety; N17.9 Acute kidney failure, unspecified; F03.911 Unspecified dementia, unspecified severity, with agitation; F05 Delirium due to known physiological condition; E87.5 Hyperkalemia; I10 Essential (primary) hypertension; Z20.822 Contact with and (suspected) exposure to COVID-19; M19.90 Unspecified osteoarthritis, unspecified site; G89.29 Other chronic pain; B96.89 Other specified bacterial agents as the cause of diseases classified elsewhere; D64.9 Anemia, unspecified; E78.5 Hyperlipidemia, unspecified; F29 Unspecified psychosis not due to a substance or known physiological condition; F41.9 Anxiety disorder, unspecified; F32.A Depression, unspecified; G40.909 Epilepsy, unspecified, not intractable, without status epilepticus; M89.8X9 Other specified disorders of bone, unspecified site; Z78.1 Physical restraint status; Z87.891 Personal history of nicotine dependence; Z91.199 Patient's noncompliance with other medical treatment and regimen due to unspecified reason; F20.9 Schizophrenia, unspecified
CPT/HCPCS: 36415; 70450-TC; 71045-TC; 80048-TC; 80053-TC; 80061-TC; 80076-TC; 81001; 82140-TC; 82728-TC; 82962-TC; 83540-TC; 83735-TC; 84100-TC; 84443-TC; 84484-TC; 85025-TC; 85027-TC; 87081-TC; 93307-TC; 97112-TC; 97530-TC; A4223; G0378; G0480; J0153; J0360; J0696; J1200; J1630; J1644; J2060; J2270; J3490; J7030; J7060

== ENCOUNTER 2024-06-18 15:22 | Inpatient (IN) | payer MEDICARE, OTHER ==
[~2024-06-18] VITALS: Ht 167.6 cm; Wt 72.6 kg
[~2024-06-18 15:22] MED LIST changes: -AMLO-213 PO; -ARIP5TAB10 PO; -ATOR10TA PO; +CIPR500T5 PO; +FERR325T28 PO; -LAMO100T17 PO; -LISI10TA29 PO; +LISI20TA30 PO; -METO25TA3 PO; -OXCA300T15 PO; -PRIM50TA27 PO; -QUET300T2 PO; -SERT50TA PO; -SODI1TAB66 PO; -TAMS-12 PO
[2024-06-18 16:10] LABS: BASOPHILS % (AUTO) 0.3 % (0.0-2.0); EOSINOPHILS % (AUTO) 0.1 % (0.0-6.0); HEMATOCRIT 39 % (39-51); HEMOGLOBIN 12.7 g/dL (13.5-17.5); LYMPHOCYTES # (AUTO) 0.9 K/uL (0.8-4.8); LYMPHOCYTES % (AUTO) 17.6 % (20.0-44.0); MEAN CORPUSCULAR HEMOGLOBIN 30 PG (26.0-33.0); MEAN CORPUSCULAR HGB CONC 33 g/dl (31.0-36.0); MEAN CORPUSCULAR VOLUME 92 fL (80-96); MONOCYTES # (AUTO) 0.4 K/uL (0.1-1.30); MONOCYTES % (AUTO) 7.7 % (2.0-12.0); NEUTROPHILS # (AUTO) 3.7 K/uL (1.8-8.9); NEUTROPHILS % (AUTO) 74.3 % (43.0-81.0); PLATELET COUNT (AUTO) 218 K/uL (150-450); RED BLOOD CELL COUNT(AUTO) 4.17 MIL/uL (4.5-6.0); RED CELL DISTRIBUTION WIDTH 14.5 % (11.5-15.0)
[2024-06-18 16:19] LABS: CALCIUM, SERUM 9.8 mg/dL (8.5-10.1); CREATININE 0.9 mg/dL (0.6-1.3); POTASSIUM 4.1 mmol/L (3.5-5.1)
[2024-06-18 16:31] LABS: BILIRUBIN,DIRECT 0.1 mg/dL (0.0-0.2); BILIRUBIN,TOTAL 0.3 mg/dL (0.2-1.0); TOTAL PROTEIN, SERUM 8.1 g/dL (6.4-8.2)
[2024-06-18] MEDS: IV NS 0.9% 1,000 ML BAG IV ONE (16:47)
[2024-06-18 16:54] LABS: APPEARANCE,URINE Clear (CLEAR); BILIRUBIN,URINE SMALL (NEGATIVE); BLOOD, URINE Negative Ery/uL (NEGATIVE); COLOR,URINE YELLOW (YELLOW); KETONES,URINE 80 mg/dL (NEGATIVE); LEUKOCYTE ESTERASE ,URINE Negative (NEGATIVE); NITRITE, URINE Negative (NEGATIVE); PROTEIN,URINE Negative (NEGATIVE); UGLUCOSE Negative (NEGATIVE)
[2024-06-18 17:04] LABS: ADD URINE CULTURE NO; BACTERIA,URINE Rare /HPF (None Seen); RBC,URINE 0-2 /HPF (0-2); SQUAMOUS EPITHELIAL CELL,UR Rare /HPF (None Seen); WBC,URINE NONE SEEN /HPF (0-3)
[2024-06-18] MEDS ORDERED: MAGN400O6 PO (17:05)
[2024-06-18] MEDS ORDERED: RISP3TAB61 PO (17:05)
[2024-06-18] MEDS ORDERED: BENZ0.5T43 PO (17:05)
[2024-06-18] MEDS ORDERED: RISP4TAB70 PO (17:05)
[2024-06-18] MEDS ORDERED: ACET325T53 PO (17:05)
[2024-06-18] MEDS ORDERED: BISA10SU11 RC (17:05)
[2024-06-18] MEDS ORDERED: TAMS-12 PO (17:05)
[2024-06-18] MEDS ORDERED: DIVA-76 PO (17:05)
[2024-06-18] MEDS ORDERED: ATOR20TA PO (17:05)
[2024-06-18] MEDS ORDERED: METO25TA4 PO (17:05)
[2024-06-18] MEDS ORDERED: NA P133E RC (17:05)
[2024-06-18] MEDS ORDERED: MAG30ORA14 PO (17:05)
[2024-06-18] MEDS ORDERED: Z GUARD REMEDY 4 OZ OINT TP PRN (18:00)
[2024-06-18] MEDS ORDERED: NA PHOS,M-B/NA PHOS,DI-BA 1 EA ENEMA RC PRN (18:00)
[2024-06-18] MEDS ORDERED: BISACODYL SUPP (10 MG) 10 MG/SUPP.RECT SUPP.RECT RC PRN (18:00)
[2024-06-18] MEDS ORDERED: MAGNESIUM HYDROXIDE 30 ML UDC PO PRN ×2 (18:00)
[2024-06-18] MEDS ORDERED: ACETAMINOPHEN 325 MG TABLET PO PRN (18:00)
[2024-06-18] MEDS ORDERED: MAG HYDROX/AL HYDROX/SIMETH 30 ML UDC PO PRN (18:00)
[2024-06-18] MEDS ORDERED: ONDANSETRON HCL/PF 4 MG/2 ML VIAL IVP PRN (18:00)
[2024-06-18] MEDS ORDERED: HYDROCODONE/APAP 5/325MG TABLET PO PRN (18:00)
[2024-06-18 18:54] VITALS: BP 137/92; TEMP 98.6; O2SAT 99
[2024-06-18 20:01] VITALS: BP 141/84; TEMP 97.9; O2SAT 99
[2024-06-18] MEDS: IV NS 0.9% 1,000 ML IV PRN (20:27)
[2024-06-18] MEDS: TAMSULOSIN 0.4 MG CAP.SR.24H PO SCH (22:36)
[2024-06-18] MEDS: ATORVASTATIN 10 MG TABLET PO SCH (22:36)
[2024-06-18] MEDS: RISPERIDONE 1 MG TAB.RAPDIS PO SCH (22:45)
[2024-06-19 00:51] VITALS: BP 141/84; TEMP 97.9; O2SAT 99
[2024-06-19 07:00] VITALS: BP 145/89; TEMP 98.4; O2SAT 98
[2024-06-19 07:23] LABS: BASOPHILS % (AUTO) 0.3 % (0.0-2.0); EOSINOPHILS % (AUTO) 0.4 % (0.0-6.0); HEMATOCRIT 36 % (39-51); HEMOGLOBIN 11.7 g/dL (13.5-17.5); LYMPHOCYTES # (AUTO) 1.5 K/uL (0.8-4.8); LYMPHOCYTES % (AUTO) 30.3 % (20.0-44.0); MEAN CORPUSCULAR HEMOGLOBIN 31 PG (26.0-33.0); MEAN CORPUSCULAR HGB CONC 33 g/dl (31.0-36.0); MEAN CORPUSCULAR VOLUME 93 fL (80-96); MONOCYTES # (AUTO) 0.4 K/uL (0.1-1.30); MONOCYTES % (AUTO) 9.1 % (2.0-12.0); NEUTROPHILS # (AUTO) 2.9 K/uL (1.8-8.9); NEUTROPHILS % (AUTO) 59.9 % (43.0-81.0); PLATELET COUNT (AUTO) 215 K/uL (150-450); RED BLOOD CELL COUNT(AUTO) 3.84 MIL/uL (4.5-6.0); RED CELL DISTRIBUTION WIDTH 14.5 % (11.5-15.0); WHITE BLOOD COUNT (AUTO) 4.8 K/uL (4.3-11.0)
[2024-06-19 07:30] LABS: CALCIUM, SERUM 9.2 mg/dL (8.5-10.1); CREATININE 0.7 mg/dL (0.6-1.3); MAGNESIUM 2.1 mg/dL (1.8-2.4); PHOSPHORUS 3.5 mg/dL (2.5-4.9)
[2024-06-19] MEDS: PANTOPRAZOLE 40 MG TABLET.DR PO SCH (08:02)
[2024-06-19 08:17] LABS: THYROID STIMULATING HORMONE 2.1 uIU/mL (0.358-3.74)
[2024-06-19] MEDS: BENZTROPINE MESYLATE (1 MG) 1 MG TABLET PO SCH (09:27)
[2024-06-19] MEDS: RISPERIDONE 1 MG TAB.RAPDIS PO SCH (09:27)
[2024-06-19] MEDS: DIVALPROEX SODIUM 250 MG TABLET.DR PO SCH (09:27)
[2024-06-19] MEDS: METOPROLOL SUCCINATE 25 MG TAB.SR.24H PO SCH (09:28)
[2024-06-19] MEDS: NAPHAZOLINE HCL/PHENIR MAL 15 ML BOTTLE LEFTEYE SCH (13:32)
[2024-06-19 16:00] VITALS: BP 103/85; TEMP 97.1; O2SAT 100
[2024-06-19] MEDS: ENSURE ENLIVE 237 ML LIQUID (VANILLA) PO SCH (17:42)
[2024-06-19 20:00] VITALS: BP 141/83; TEMP 98.4; O2SAT 96
[2024-06-19 21:53] VITALS: BP 141/83; TEMP 98.4; O2SAT 96
[2024-06-20 07:30] VITALS: BP 142/89; TEMP 98.6; O2SAT 100
[2024-06-20 20:00] VITALS: BP 125/85; TEMP 98.2; O2SAT 97
[2024-06-20] MEDS: risperiDONE 1 MG TABLET ONE (21:08)
[2024-06-21 07:00] VITALS: BP 138/89; TEMP 98.2; O2SAT 100
[2024-06-21] MEDS: CIPROFLOXACIN HCL 0.3% 5 ML BOTTLE LEFTEYE SCH (10:58)
[2024-06-21 16:00] VITALS: BP 158/98; TEMP 99.2; O2SAT 96
[2024-06-21] MEDS: ACETAMINOPHEN 325 MG TABLET PO PRN (16:14)
[2024-06-21 20:00] VITALS: BP 150/97; TEMP 98.6; O2SAT 96
== END 2024-06-22 13:30 | DRG 641 ==
LOC: ER 15:24 → MED 18:32
PROVIDERS: ADMIT Nurse Practitioner Acute Care; ATTEND Nurse Practitioner Acute Care
DX: R62.7 Adult failure to thrive (principal); E86.0 Dehydration; G40.909 Epilepsy, unspecified, not intractable, without status epilepticus; M19.90 Unspecified osteoarthritis, unspecified site; F29 Unspecified psychosis not due to a substance or known physiological condition; I10 Essential (primary) hypertension; G89.29 Other chronic pain; Z79.899 Other long term (current) drug therapy; H10.89 Other conjunctivitis; F41.9 Anxiety disorder, unspecified; F32.A Depression, unspecified; E78.5 Hyperlipidemia, unspecified; F20.9 Schizophrenia, unspecified; N40.0 Benign prostatic hyperplasia without lower urinary tract symptoms; Z87.891 Personal history of nicotine dependence; R53.1 Weakness
CPT/HCPCS: 36415; 71045-TC; 80048-TC; 80061-TC; 80076-TC; 81001; 83735-TC; 84100-TC; 84443-TC; 85025-TC; 97112-TC; 97116-TC; 97530-TC; A4223; G0378; J7030

== ENCOUNTER 2024-07-10 19:57 | Inpatient (IN) | payer MEDICARE, OTHER ==
[~2024-07-10] VITALS: Ht 182.9 cm; Wt 81.6 kg
[~2024-07-10 19:57] MED LIST changes: +ACET325T53 PO; +ATOR20TA PO; +BENZ0.5T43 PO; +BISA10SU11 RC; -CIPR500T5 PO; +DIVA-76 PO; -FERR325T28 PO; -LISI20TA30 PO; +MAG30ORA14 PO; +MAGN400O6 PO; +METO25TA4 PO; +NA P133E RC; +RISP3TAB61 PO; +RISP4TAB70 PO; +TAMS-12 PO
[2024-07-10 21:35] LABS: BASOPHILS % (AUTO) 0.6 % (0.0-2.0); EOSINOPHILS # (AUTO) 0.1 K/uL (0.0-0.7); EOSINOPHILS % (AUTO) 1.5 % (0.0-6.0); HEMATOCRIT 34 % (39-51); HEMOGLOBIN 11.2 g/dL (13.5-17.5); LYMPHOCYTES # (AUTO) 1.2 K/uL (0.8-4.8); LYMPHOCYTES % (AUTO) 26.1 % (20.0-44.0); MEAN CORPUSCULAR HEMOGLOBIN 30 PG (26.0-33.0); MEAN CORPUSCULAR HGB CONC 33 g/dl (31.0-36.0); MEAN CORPUSCULAR VOLUME 92 fL (80-96); MONOCYTES # (AUTO) 0.5 K/uL (0.1-1.30); MONOCYTES % (AUTO) 11.8 % (2.0-12.0); NEUTROPHILS # (AUTO) 2.7 K/uL (1.8-8.9); PLATELET COUNT (AUTO) 219 K/uL (150-450); RED BLOOD CELL COUNT(AUTO) 3.69 MIL/uL (4.5-6.0); RED CELL DISTRIBUTION WIDTH 14.9 % (11.5-15.0); WHITE BLOOD COUNT (AUTO) 4.5 K/uL (4.3-11.0)
[2024-07-10 21:47] LABS: ALANINE AMINOTRANSFERASE 9 U/L (12-78); ALBUMIN 3.3 g/dL (3.4-5.0); ALCOHOL, BLOOD < 3 mg/dL (0-10); ALKALINE PHOSPHATASE 104 U/L (46-116); ASPARTATE AMINOTRANSFERASE 7 U/L (15-37); BILIRUBIN,TOTAL 0.2 mg/dL (0.2-1.0); CALCIUM, SERUM 9.3 mg/dL (8.5-10.1); CARBON DIOXIDE 29 mmol/L (21-32); CHLORIDE 104 mmol/L (98-107); CREATININE 0.9 mg/dL (0.6-1.3); GLUCOSE 83 mg/dL (74-106); POTASSIUM 3.7 mmol/L (3.5-5.1); SALICYLATE 0.8 mg/dL (2.8-20.0); SODIUM SERUM 140 mmol/L (136-145); TOTAL PROTEIN, SERUM 6.8 g/dL (6.4-8.2); UREA NITROGEN, BLOOD 17 mg/dL (7-18)
[2024-07-10 21:48] LABS: ACETAMINOPHEN <10 ug/ml (10-30)
[2024-07-10] MEDS ORDERED: BISACODYL SUPP (10 MG) 10 MG/SUPP.RECT SUPP.RECT RC PRN (23:00)
[2024-07-10] MEDS ORDERED: MAG HYDROX/AL HYDROX/SIMETH 30 ML UDC PO PRN (23:00)
[2024-07-11 02:10] VITALS: BP 144/81; TEMP 98.4
[2024-07-11] MEDS ORDERED: LORAZEPAM 0.5 MG TABLET PO PRN ×2 (02:30)
[2024-07-11] MEDS ORDERED: ACETAMINOPHEN 325 MG TABLET PO PRN ×2 (02:30→11:30)
[2024-07-11] MEDS ORDERED: TEMAZEPAM 7.5 MG CAPSULE PO PRN ×2 (02:30)
[2024-07-11] MEDS ORDERED: MAG HYDROX/AL HYDROX/SIMETH 30 ML UDC PO PRN (02:30)
[2024-07-11] MEDS: BLOOD SUGAR DIAGNOSTIC 1 EACH STRIP IN ONE (02:40)
[2024-07-11] MEDS ORDERED: PANT40TA2 PO (07:52)
[2024-07-11] MEDS ORDERED: PEG15DRO8 LEFTEYE (07:52)
[2024-07-11 08:00] VITALS: BP 149/76; TEMP 98.2; O2SAT 100
[2024-07-11] MEDS: ENSURE ENLIVE CHOC 237 ML CAN PO SCH (08:02)
[2024-07-11] MEDS: METOPROLOL SUCCINATE 25 MG TAB.SR.24H PO SCH (08:04)
[2024-07-11] MEDS ORDERED: hydrALAZINE HCL 10 MG TABLET PO PRN (11:30)
[2024-07-11] MEDS ORDERED: POLYVINYL ALCOHOL 15 ML BOTTLE OP PRN (11:30)
[2024-07-11] MEDS: DIVALPROEX SODIUM 250 MG TABLET.DR PO SCH (17:00)
[2024-07-11] MEDS: BENZTROPINE MESYLATE (1 MG) 1 MG TABLET PO SCH (17:04)
[2024-07-11] MEDS: risperiDONE 1 MG TABLET PO SCH (17:06)
[2024-07-11 21:30] VITALS: BP 138/79; TEMP 98.4; O2SAT 97
[2024-07-11] MEDS: TAMSULOSIN 0.4 MG CAP.SR.24H PO SCH (21:58)
[2024-07-11] MEDS: ATORVASTATIN 10 MG TABLET PO SCH (21:58)
[2024-07-12 08:00] VITALS: BP 129/79; TEMP 98.1; O2SAT 100
[2024-07-12] MEDS: PANTOPRAZOLE 40 MG TABLET.DR PO SCH (08:20)
[2024-07-12 16:00] VITALS: BP 122/80; TEMP 98.9; O2SAT 98
[2024-07-12] MEDS: risperiDONE 1 MG TABLET PO SCH (16:38)
[2024-07-12 20:31] VITALS: BP 100/62; TEMP 98; O2SAT 98
[2024-07-13 08:00] VITALS: BP 127/78; TEMP 98.6; O2SAT 100
[2024-07-13 16:00] VITALS: BP 114/73; TEMP 98.1; O2SAT 98
[2024-07-13 20:58] VITALS: BP 101/61; TEMP 97.8; O2SAT 99
[2024-07-13] MEDS: risperiDONE 1 MG TABLET PO SCH (21:37)
[2024-07-13] MEDS: BENZTROPINE MESYLATE (1 MG) 1 MG TABLET PO SCH (21:37)
[2024-07-14 08:00] VITALS: BP 152/78; TEMP 97.7; O2SAT 100
[2024-07-14 16:00] VITALS: BP 99/68; TEMP 97.9; O2SAT 98
[2024-07-14 20:25] VITALS: BP 121/81; TEMP 98.8; O2SAT 98
[2024-07-15] MEDS: MAGNESIUM HYDROXIDE 30 ML UDC PO PRN (04:32)
[2024-07-15 08:00] VITALS: BP 126/75; TEMP 97.2; O2SAT 97
[2024-07-15 16:00] VITALS: BP 123/83; TEMP 98.4; O2SAT 98
[2024-07-15 20:00] VITALS: BP 122/71; TEMP 98.3; O2SAT 99
[2024-07-16 08:00] VITALS: BP 127/88; TEMP 98; O2SAT 99
[2024-07-16] MEDS: risperiDONE 1 MG TABLET PO SCH (13:29)
[2024-07-16 20:00] VITALS: BP 159/90; TEMP 98.4; O2SAT 99
[2024-07-17 08:00] VITALS: BP 138/82; TEMP 97.4; O2SAT 98
[2024-07-17 16:00] VITALS: BP 134/80; TEMP 98; O2SAT 99
[2024-07-17] MEDS: risperiDONE 1 MG TABLET PO SCH ×2 (17:09→21:25)
[2024-07-17 20:00] VITALS: BP 129/73; TEMP 98.1; O2SAT 98
[2024-07-18 08:00] VITALS: BP 138/65; TEMP 98; O2SAT 99
[2024-07-18 16:00] VITALS: BP 122/79; TEMP 98.2; O2SAT 99
[2024-07-18 20:25] VITALS: BP 103/70; TEMP 98.8; O2SAT 96
[2024-07-19 08:00] VITALS: BP 119/68; TEMP 97.6; O2SAT 99
[2024-07-19 16:00] VITALS: BP 106/67; TEMP 98.4; O2SAT 98
[2024-07-19 21:04] VITALS: BP 109/64; TEMP 98.2; O2SAT 98
[2024-07-20 08:00] VITALS: BP 140/72; TEMP 98.7; O2SAT 98
[2024-07-20 16:00] VITALS: BP 133/80; TEMP 98.7; O2SAT 100
[2024-07-20 20:00] VITALS: BP 128/65; TEMP 97.7; O2SAT 99
[2024-07-20 20:16] VITALS: BP 123/65; TEMP 97.7; O2SAT 99
[2024-07-20] MEDS: DIVALPROEX SODIUM 500 MG TABLET.DR PO SCH (22:03)
[2024-07-21 08:00] VITALS: BP 134/80; TEMP 97.7; O2SAT 96
[2024-07-21 16:20] VITALS: BP 119/74; TEMP 97.9; O2SAT 98
[2024-07-21 20:55] VITALS: BP 124/70; TEMP 97.5; O2SAT 97
[2024-07-22 08:00] VITALS: BP 123/51; TEMP 97; O2SAT 98
[2024-07-22 16:00] VITALS: BP 112/70; TEMP 98.1; O2SAT 97
[2024-07-22 20:00] VITALS: BP 114/71; TEMP 97.7; O2SAT 98
[2024-07-22] MEDS: risperiDONE 1 MG TABLET PO SCH (21:11)
[2024-07-23 08:00] VITALS: BP 142/79; TEMP 97.9; O2SAT 100
[2024-07-23 16:00] VITALS: BP 115/94; TEMP 97.7; O2SAT 98
[2024-07-23 20:05] VITALS: BP 117/71; TEMP 97.8; O2SAT 97
[2024-07-24 08:00] VITALS: BP 135/75; TEMP 98; O2SAT 95
[2024-07-24 16:00] VITALS: BP 126/87; TEMP 98; O2SAT 98
[2024-07-24 20:00] VITALS: BP 116/83; TEMP 98
[2024-07-25 08:00] VITALS: BP 142/83; TEMP 97.6; O2SAT 99
[2024-07-25 16:00] VITALS: BP 112/78; TEMP 98; O2SAT 97
[2024-07-25 20:13] VITALS: BP 138/69; TEMP 98.1; O2SAT 98
[2024-07-26 08:00] VITALS: BP 124/70; TEMP 97.6; O2SAT 100
[2024-07-26 16:00] VITALS: BP 118/77; TEMP 97.6; O2SAT 98
[2024-07-26 20:37] VITALS: BP 133/73; TEMP 97.8; O2SAT 100
[2024-07-27 08:00] VITALS: BP 122/72; TEMP 97.8; O2SAT 97
[2024-07-27 08:17] VITALS: BP 122/72
== END 2024-07-27 14:40 | DRG 885 ==
LOC: ER 20:18 → GPS 07-11 00:46
PROVIDERS: ADMIT Psychiatry & Neurology Psychosomatic Medicine; ATTEND Nurse Practitioner Acute Care
DX: F25.0 Schizoaffective disorder, bipolar type (principal); E44.0 Moderate protein-calorie malnutrition; I10 Essential (primary) hypertension; G40.909 Epilepsy, unspecified, not intractable, without status epilepticus; Z20.822 Contact with and (suspected) exposure to COVID-19; E78.5 Hyperlipidemia, unspecified; G89.29 Other chronic pain; Z87.891 Personal history of nicotine dependence; M19.90 Unspecified osteoarthritis, unspecified site; Z79.899 Other long term (current) drug therapy; E88.09 Other disorders of plasma-protein metabolism, not elsewhere classified; F12.11 Cannabis abuse, in remission; N40.0 Benign prostatic hyperplasia without lower urinary tract symptoms; Z73.6 Limitation of activities due to disability
CPT/HCPCS: 36415; 80048-TC; 80076-TC; 82962-TC; 85025-TC; 87081-TC; 97112-TC; 97116-TC; 97530-TC; G0480

== ENCOUNTER 2024-10-28 14:39 | Inpatient (IN) | payer MEDICARE, OTHER ==
[~2024-10-28] VITALS: Ht 182.9 cm; Wt 81.6 kg
[~2024-10-28 14:39] MED LIST changes: +PANT40TA2 PO; +PEG15DRO8 LEFTEYE
[2024-10-28 17:49] LABS: BASOPHILS % (AUTO) 0.3 % (0.0-2.0); EOSINOPHILS % (AUTO) 0.3 % (0.0-6.0); HEMATOCRIT 38 % (39-51); HEMOGLOBIN 12.7 g/dL (13.5-17.5); LYMPHOCYTES # (AUTO) 1.4 K/uL (0.8-4.8); LYMPHOCYTES % (AUTO) 25.8 % (20.0-44.0); MEAN CORPUSCULAR HEMOGLOBIN 32 PG (26.0-33.0); MEAN CORPUSCULAR HGB CONC 33 g/dl (31.0-36.0); MEAN CORPUSCULAR VOLUME 96 fL (80-96); MONOCYTES # (AUTO) 0.6 K/uL (0.1-1.30); MONOCYTES % (AUTO) 10.8 % (2.0-12.0); NEUTROPHILS # (AUTO) 3.5 K/uL (1.8-8.9); NEUTROPHILS % (AUTO) 62.8 % (43.0-81.0); PLATELET COUNT (AUTO) 240 K/uL (150-450); RED BLOOD CELL COUNT(AUTO) 3.99 MIL/uL (4.5-6.0); RED CELL DISTRIBUTION WIDTH 15.3 % (11.5-15.0); WHITE BLOOD COUNT (AUTO) 5.6 K/uL (4.3-11.0)
[2024-10-28 17:57] LABS: CALCIUM, SERUM 9.7 mg/dL (8.5-10.1); CARBON DIOXIDE 29 mmol/L (21-32); CHLORIDE 104 mmol/L (98-107); CREATININE 1.2 mg/dL (0.6-1.3); GLUCOSE 96 mg/dL (74-106); POTASSIUM 4.4 mmol/L (3.5-5.1); SODIUM SERUM 138 mmol/L (136-145); UREA NITROGEN, BLOOD 18 mg/dL (7-18)
[2024-10-28 18:03] LABS: ALANINE AMINOTRANSFERASE 14 U/L (12-78); ALCOHOL, BLOOD < 3 mg/dL (0-10); ALKALINE PHOSPHATASE 88 U/L (46-116); ASPARTATE AMINOTRANSFERASE 12 U/L (15-37); BILIRUBIN,DIRECT 0.1 mg/dL (0.0-0.2); BILIRUBIN,TOTAL 0.3 mg/dL (0.2-1.0)
[2024-10-28 18:04] LABS: ACETAMINOPHEN <10 ug/ml (10-30); SALICYLATE 0.4 mg/dL (2.8-20.0)
[2024-10-28 18:10] LABS: ALBUMIN 3.7 g/dL (3.4-5.0)
[2024-10-28 18:12] LABS: APPEARANCE,URINE Clear (CLEAR); BILIRUBIN,URINE Negative (NEGATIVE); BLOOD, URINE Negative Ery/uL (NEGATIVE); COLOR,URINE YELLOW (YELLOW); KETONES,URINE Trace mg/dL (NEGATIVE); LEUKOCYTE ESTERASE ,URINE Negative (NEGATIVE); NITRITE, URINE Negative (NEGATIVE); PH,URINE 5.5 (5.0-8.0); PROTEIN,URINE Negative (NEGATIVE); UGLUCOSE Negative (NEGATIVE); UROBILINOGEN,URINE 0.2 EU/dL (0.2)
[2024-10-28 18:18] LABS: ADD URINE CULTURE NO; BACTERIA,URINE Few /HPF (None Seen); SQUAMOUS EPITHELIAL CELL,UR None Seen /HPF (None Seen); WBC,URINE 0-2 /HPF (0-3)
[2024-10-28 18:25] LABS: AMPHETAMINE, URINE NEGATIVE (NEGATIVE); BARBITURATE, URINE NEGATIVE (NEGATIVE); BENZODIAZEPINE, URINE NEGATIVE (NEGATIVE); CANNABINOID, URINE NEGATIVE (NEGATIVE); COCCAINE, URINE NEGATIVE (NEGATIVE); OPIATE, URINE NEGATIVE (NEGATIVE); PHENCYCLIDINE SCREEN,URINE NEGATIVE (NEGATIVE)
[2024-10-29] MEDS ORDERED: TEMAZEPAM 7.5 MG CAPSULE PO PRN (01:30)
[2024-10-29] MEDS ORDERED: MAG HYDROX/AL HYDROX/SIMETH 30 ML UDC PO PRN ×2 (01:30→04:00)
[2024-10-29] MEDS ORDERED: LORAZEPAM 0.5 MG TABLET PO PRN (01:30)
[2024-10-29] MEDS ORDERED: MAGNESIUM HYDROXIDE 30 ML UDC PO PRN (01:30)
[2024-10-29] MEDS ORDERED: ACETAMINOPHEN 325 MG TABLET PO PRN (01:30)
[2024-10-29] MEDS: TEMAZEPAM 7.5 MG CAPSULE PO PRN (02:03)
[2024-10-29] MEDS: BLOOD SUGAR DIAGNOSTIC 1 EACH STRIP IN ONE (02:03)
[2024-10-29 02:21] VITALS: BP 148/88; TEMP 98.2; O2SAT 98
[2024-10-29] MEDS ORDERED: BISACODYL SUPP (10 MG) 10 MG/SUPP.RECT SUPP.RECT RC PRN (02:30)
[2024-10-29] MEDS ORDERED: POLYVINYL ALCOHOL 15 ML BOTTLE LEFTEYE PRN (04:00)
[2024-10-29 08:24] VITALS: BP 146/86; TEMP 99.3; O2SAT 99
[2024-10-29] MEDS: METOPROLOL SUCCINATE 25 MG TAB.SR.24H PO SCH (08:31)
[2024-10-29] MEDS: PANTOPRAZOLE 40 MG TABLET.DR PO SCH (08:32)
[2024-10-29] MEDS ORDERED: RISP2TAB85 PO (08:39)
[2024-10-29] MEDS ORDERED: MULT-213 PO (08:39)
[2024-10-29] MEDS: LORAZEPAM 0.5 MG TABLET PO PRN (14:46)
[2024-10-29 15:54] VITALS: BP 156/95; TEMP 98.8; O2SAT 98
[2024-10-29] MEDS: DIVALPROEX SODIUM 250 MG TABLET.DR PO SCH (16:54)
[2024-10-29] MEDS: risperiDONE 1 MG TABLET PO SCH (16:54)
[2024-10-29 20:00] VITALS: BP 110/79; TEMP 98.6; O2SAT 99
[2024-10-29] MEDS: ATORVASTATIN 10 MG TABLET PO SCH (21:25)
[2024-10-29] MEDS: TAMSULOSIN 0.4 MG CAP.SR.24H PO SCH (21:25)
[2024-10-30 08:00] VITALS: BP 132/93; TEMP 98.9; O2SAT 98
[2024-10-30 08:43] LABS: CHOLESTEROL 196 mg/dL (<200); HDL CHOLESTEROL 61 mg/dL (40-60); LDL 119 mg/dL (0-99); TRIGLYCERIDES 18 mg/dL (30-150)
[2024-10-30 09:23] LABS: ALBUMIN 4.2 g/dL (3.4-5.0); BILIRUBIN,TOTAL 0.2 mg/dL (0.2-1.0); CALCIUM, SERUM 9.7 mg/dL (8.5-10.1); CREATININE 0.9 mg/dL (0.6-1.3); POTASSIUM 4.7 mmol/L (3.5-5.1)
[2024-10-30 16:00] VITALS: BP 143/80; TEMP 97.9; O2SAT 98
[2024-10-30 19:50] VITALS: BP 125/85; TEMP 98.7; O2SAT 98
[2024-10-31 08:00] VITALS: BP 151/93; TEMP 98; O2SAT 99
[2024-10-31 16:00] VITALS: BP 131/81; TEMP 98; O2SAT 94
[2024-10-31] MEDS: risperiDONE 1 MG TABLET PO SCH ×2 (17:01→21:53)
[2024-10-31 21:16] VITALS: BP 131/76; TEMP 98; O2SAT 100
[2024-11-01 08:00] VITALS: BP 143/89; TEMP 98; O2SAT 100
[2024-11-01 16:00] VITALS: BP 169/88; TEMP 97.6; O2SAT 96
[2024-11-01 21:02] VITALS: BP 141/65; TEMP 97.6; O2SAT 97
[2024-11-02 08:00] VITALS: BP 147/86; TEMP 98.8; O2SAT 100
[2024-11-02 16:00] VITALS: BP 150/85; TEMP 97.8; O2SAT 100
[2024-11-02 20:41] VITALS: BP 123/65; TEMP 98.4; O2SAT 100
[2024-11-03 08:00] VITALS: BP 160/89; TEMP 97.9; O2SAT 100
[2024-11-03 16:00] VITALS: BP 140/82; TEMP 98; O2SAT 99
[2024-11-03 20:09] VITALS: BP 120/69; TEMP 98.3; O2SAT 100
[2024-11-04 08:00] VITALS: BP 156/86; TEMP 98.6; O2SAT 98
[2024-11-04 16:00] VITALS: BP 161/88; TEMP 98.2; O2SAT 100
[2024-11-04] MEDS: risperiDONE 1 MG TABLET PO SCH (16:59)
[2024-11-04 20:00] VITALS: BP 145/83; TEMP 98.5; O2SAT 100
[2024-11-05 08:00] VITALS: BP 147/92; TEMP 99.1; O2SAT 98
[2024-11-05 16:00] VITALS: BP 125/77; TEMP 98.8; O2SAT 100
[2024-11-05] MEDS: risperiDONE 1 MG TABLET PO SCH (16:15)
[2024-11-05 20:12] VITALS: BP 125/67; TEMP 98.9; O2SAT 100
[2024-11-06 08:00] VITALS: BP 124/78; TEMP 98; O2SAT 98
[2024-11-06 16:00] VITALS: BP 126/76; TEMP 97.6; O2SAT 95
[2024-11-06 20:00] VITALS: BP 127/69; TEMP 97.7; O2SAT 100
[2024-11-07 08:00] VITALS: BP 164/89
[2024-11-07 09:09] VITALS: TEMP 97.8; O2SAT 97
[2024-11-07 16:00] VITALS: BP 122/84; TEMP 97.7; O2SAT 99
[2024-11-07 21:09] VITALS: BP 124/73; TEMP 97.8; O2SAT 98
[2024-11-08 08:00] VITALS: BP 113/80; TEMP 99.1; O2SAT 100
[2024-11-08 16:00] VITALS: BP 131/80; TEMP 98.8; O2SAT 100
[2024-11-08 20:54] VITALS: BP 108/74; TEMP 98.2; O2SAT 98
[2024-11-09 08:00] VITALS: BP 166/77; TEMP 97.9; O2SAT 100
[2024-11-09 08:04] VITALS: BP 166/77
== END 2024-11-09 13:45 | DRG 885 ==
LOC: ER 14:45 → GPS 23:00
PROVIDERS: ADMIT Nurse Practitioner Psychiatric/Mental Health; ATTEND Nurse Practitioner Acute Care
DX: F20.9 Schizophrenia, unspecified (principal); F02.83 Dementia in other diseases classified elsewhere, unspecified severity, with mood disturbance; F29 Unspecified psychosis not due to a substance or known physiological condition; I10 Essential (primary) hypertension; G40.909 Epilepsy, unspecified, not intractable, without status epilepticus; Z73.6 Limitation of activities due to disability; D64.9 Anemia, unspecified; E78.5 Hyperlipidemia, unspecified; N40.0 Benign prostatic hyperplasia without lower urinary tract symptoms; G20.C Parkinsonism, unspecified; F17.200 Nicotine dependence, unspecified, uncomplicated; Z79.899 Other long term (current) drug therapy; M19.90 Unspecified osteoarthritis, unspecified site; G89.29 Other chronic pain
CPT/HCPCS: 36415; 80048-TC; 80053-TC; 80061-TC; 80076-TC; 81001; 82962-TC; 85025-TC; 97112-TC; 97116-TC; 97530-TC; G0480